=== PATIENT | female | born 1980 | race Caucasian/White ===

== ENCOUNTER 2017-09-14 08:49 | Day surgery (SDC) | payer BC ==
--- NOTE | 2017-09-14 07:14 | PDGENHP ---
History and Physical History and Physical: Assessment and Plan: 1. Endometriosis of pelvic peritoneum Anabel continues to suffer from dyspareunia and dyschezia. She has dysmenorrhea which is mostly a cramping sensation. This may be from both endometriosis and adenomyosis. Unfortunately she has undergone 4 laparoscopies none of which have included excision. If her pain greatly interferes with her life I would recommend vision of all endometriosis. If she prefers trying to get again soon I would pursue this with her regular [employer]TER or obtain a referral to a infertility specialist. She is going to discuss this with her and get back to me if she desires surgical intervention. 2. Dyspareunia, female 3. Metrorrhagia 4. Dyschezia Subjective: Patient ID: Anabel Grady is a 36 y.o. female who presents to [facility] for endometriosis. ELIAS Little is a 36-year-old para 1 woman. Her daughter was born by section. She lives in [place]. She has a long history of pelvic pain with 4 prior laparoscopies for endometriosis in 2010, , , and January 2016. Her most recent [facility] by [facility] Katina Calvin [facility]. Apparently she had some endometriosis which was fulgurated as well as adhesions of her colon ovary and uterus. Her cycles are irregular. She will bleed 3-7 days which is light. However she will have 5 other days of spotting throughout the month which is very inconvenient. She has deep anterior dyschezia as well as deep dyspareunia. After each laparoscopy she feels good for about 12 months then the pain returns. She and her would like more children. She required progesterone supplementation with her daughter. She had a spontaneous miscarriage at 6 weeks after her last laparoscopy. Apparently no heart rate was seen. She was on progesterone supplementation. Overall her pain is still better than it was before her last surgery. PastMedicalHistory Past Medical History: Diagnosis Date Endometriosis determined by laparoscopy IC (interstitial cystitis) PastSurgicalHistory Past Surgical History: Procedure Laterality Date BLADDER SURGERY 2013, 2015 SECTION 2010 CHOLECYSTECTOMY 02/2017 PELVIC LAPAROSCOPY 2010, 2012, 2013, 2016 CURRENT MEDICATIONS: No current outpatient prescriptions on file. No current facility-administered medications for this visit. ALLERGIES: Codeine; Latex; Morphine; Percocet [oxycodone-acetaminophen]; and Sulfa (sulfonamide antibiotics) I have reviewed, verified and agree with the past medical, surgical, , family, social and ROS history as documented by the RN today. Objective: Vital Signs: Visit Vitals BP 108/76 Pulse 79 Temp 37.2 C (98.9 F) (Temporal Artery) Resp 14 Ht 1.664 m (5' 5.5") Wt 87.1 kg (192 lb) SpO2 97% BMI 31.46 kg/m Physical Exam Gen: This is an alert, well developed woman in no distress. Neuro: She moves all extremities. Psych: She is appropriate, oriented, with normal affect. Neck: No thyroid enlargement, adenopathy, or tenderness. Lungs: Clear to ascultation, no wheezes or rales. Heart: Regular rate and rhythm without obvious murmurs. Abdomen: Soft, non-tender, without guarding, rebound, or masses. Extremities: No edema or cyanosis. Pelvic: Normal external genitalia. Non-gaping introitus, vagina without discharge, adequately estrogenized, no significant prolapse. Cervix without lesions or discharge. Uterus normal sized, mobile, non-tender. Adnexa non- tender without enlargement. She is tender surrounding the cervix. She is exquisitely tender along the posterior aspect of the uterus and the upper posterior cul-de-sac. She has slight tenderness of the proximal rectovaginal septum. No obvious nodularity is found. DATA: I have reviewed the pertinent medical records. TIME/COMMUNICATION: I personally spent a total of 50 minutes. Of that 40 minutes was counseling/ coordination of patient's care. See my note above for details. Farhat Wellington MD Board Certified Female Pelvic Medicine and Reconstructive Surgery Director of Minimally Invasive Gynecologic Surgery, [facility] Surgeon in Minimally Invasive Gynecologic Surgery [facility] Surgeon in Robotic Surgery
--- NOTE | 2017-09-14 08:08 | PDANEPAE ---
ANE History of Present Illness here for robot assisted endometriosis excision ANE Past Medical History - Cardiovascular History Hx Hypertension: No Hx Arrhythmias: No Hx Chest Pain: No Hx Coronary Artery / Peripheral Vascular Disease: No Hx CHF / Valvular Disease: No Hx Palpitations: No - Pulmonary History Hx COPD: No Hx Asthma/Reactive Airway Disease: Yes Hx Recent Upper Respiratory Infection: No Hx Oxygen in Use at Home: No Hx Sleep Apnea: No Sleep Apnea Screening Result - Last Documented: Negative Pulmonary History Comment: ASTHMA TRIGGERS COLD AND EXERTION - Neurologic History Hx Cerebrovascular Accident: No Hx Seizures: No Hx Dementia: No - Endocrine History Hx Diabetes: No Endocrine History Comment: HYPOTHYROID HAVEN'T TAKEN MEDICATION IN AWHILE - Renal History Hx Renal Disorders: Yes Renal History Comment: HX INTERSTITIAL CYSTITIS NO FLARE. IN 2 YEARS. IF NEEDS TO BE CATHED NEEDS PEDIATRIC SZ CATHETER - Liver History Hx Hepatic Disorders: No - Neurological & Psychiatric Hx Hx Neurological and Psychiatric Disorders: Yes Neurological / Psychiatric History Comment: DEPRESSION/ANXIETY - Cancer History Hx Cancer: No - Congenital Disorder History Hx Congenital Disorders: No - GI History Hx Gastrointestinal Disorders: Yes Gastrointestinal History Comment: FREQUENT CONSTIPATION - Other Health History Other Health History: RT SHLDR DISCOMFORT - Chronic Pain History Chronic Pain: Yes (ENDOMETROSIS) - Surgical History Prior Surgeries: [place] 02/2017. DX LAP FOR ENDOMETROSIS/ADHESIONS. . BLADDER PROCEDURE FOR INTERSTITIAL CYSTITIS. BLADDER BX ANE Review of Systems Review of systems is: negative Review of Systems: - Exercise capacity Exercise capacity: >=4 METS METS (RN): 4 METS ANE Patient History - Allergies Allergies/Adverse Reactions: codeine Allergy (Verified 08/19/17 14:42) HALLUCINATIONS hydromorphone [From Dilaudid] Allergy (Verified 08/19/17 14:42) RESP DISTRESS latex Allergy (Verified 08/19/17 14:42) ITCHING AND BURNING morphine Allergy (Verified 08/19/17 14:42) HALLUCINATIONS oxycodone Allergy (Verified 08/19/17 14:42) RESP DISTRESS Sulfa (Sulfonamide Antibiotics) Allergy (Verified 08/19/17 14:42) Diarrhea - Home Medications Home medications: home medication list seen and reviewed Home Medications: NK [No Known Home Meds] 08/19/17 [Last Taken Unknown] - Smoking Hx Smoking Status: Never smoked ANE Labs/Vital Signs - Vital Signs Vital Signs: reviewed preoperatively; see RN documention for details Height: 167.64 cm Weight: 83.915 kg ANE Physical Exam - Airway Neck exam: FROM Mallampati Score: Class 1 - Pulmonary Pulmonary: no respiratory distress - Cardiovascular Cardiovascular: regular rate and rhythym - ASA Status ASA Status: I ANE Anesthesia Plan Anesthesia Plan: general endotracheal anesthesia
[2017-09-14] MEDS ORDERED: PHENAZOPYRIDINE HCL 200 MG TAB PO ONE (08:53)
[2017-09-14] MEDS ORDERED: GABAPENTIN 400 MG CAP PO ONE (08:53)
[2017-09-14] MEDS ORDERED: ACETAMINOPHEN 500 MG TAB PO ONE (08:53)
[2017-09-14] MEDS ORDERED: ceFAZolin 2 GM/DEXTROSE 100 ML IV ONE (08:53)
[2017-09-14] MEDS ORDERED: LIDOCAINE 1% 2 ML INJ ID PRN (08:55)
[2017-09-14] MEDS ORDERED: LR 1,000 ML IV ONE (08:55)
[2017-09-14] MEDS ORDERED: BUPIVACAINE/EPI 0.5% 30 ML SDV ONE (08:57)
[2017-09-14] MEDS ORDERED: NALOXONE HCL 0.4 MG/ML INJ IVP PRN (09:09)
[2017-09-14] MEDS ORDERED: ALBUTEROL 3 ML DEYVIAL IH PRN (09:09)
[2017-09-14] MEDS ORDERED: PROMETHAZINE HCL 25 MG/ML INJ IVP PRN (09:09)
[2017-09-14] MEDS ORDERED: DEXAMETHASONE 4 MG/ML VIAL IVP PRN (09:09)
[2017-09-14] MEDS ORDERED: LR 500 ML IV PRN (09:09)
[2017-09-14] MEDS ORDERED: MIDAZOLAM 2 MG/2 ML VIAL IVP ONE (09:09)
[2017-09-14] MEDS ORDERED: ONDANSETRON 4 MG/2 ML VIAL IVP PRN (09:09)
[2017-09-14] MEDS ORDERED: ACETAMINOPHEN 500 MG TAB PO PRN (09:15)
[2017-09-14] MEDS ORDERED: fentaNYL 100 MCG/2 ML INJ ONE ×5 (09:26→14:34)
[2017-09-14] MEDS ORDERED: PROPOFOL/EMULSION 500 MG/50 ML BOTTLE IV ONE (09:31)
[2017-09-14] MEDS ORDERED: ONDANSETRON 4 MG/2 ML VIAL ONE ×3 (09:36→12:48)
[2017-09-14] MEDS ORDERED: PROPOFOL 200 MG/20 ML VIAL ONE (09:55)
[2017-09-14] MEDS ORDERED: GLYCOPYRROLATE 0.2 MG/1 ML VIAL ONE ×3 (10:58)
[2017-09-14] MEDS ORDERED: NEOSTIGMINE METHYLSULFATE 5 MG/5 ML SYR ONE (10:58)
[2017-09-14] MEDS ORDERED: KETOROLAC 30 MG/1 ML SDV ONE (11:03)
--- NOTE | 2017-09-14 11:15 | POSTOPPROG ---
Post Op Note Date of Operation: 09/14/17 Surgeon: Farhat Wellington Casting Machine Set Up Operator: Pepper Carranza Anesthesiologist: Layton Cabrera Anesthesia: GET(General Endotracheal) Pre-op Diagnosis: Endometriosis Post-op Diagnosis: Same Procedure: Robotic excision of endo, bilat ureterolysis Findings: Endo Inf/Abcess present in the surg proc area at time of surgery?: No EBL: Minimal Complications: None Specimen(s): Endo
[2017-09-14] MEDS: fentaNYL 100 MCG/2 ML INJ IVP PRN ×5 (11:32→14:39)
--- NOTE | 2017-09-14 11:55 | GOP ---
[f rep st] OPERATIVE REPORT DATE OF OPERATION: 09/14/2017 SURGEON: Farhat Wellington MD INDUSTRIAL ENGINEERING PROFESSOR: Pepper Zuniga CFA. ANESTHESIA: General. PREOPERATIVE DIAGNOSIS: 1. Endometriosis. 2. Dysmenorrhea. 3. Cyclic pelvic pain. 4. Interstitial cystitis. POSTOPERATIVE DIAGNOSIS: 1. Endometriosis. 2. Dysmenorrhea. 3. Cyclic pelvic pain. 4. Interstitial cystitis. PROCEDURE PERFORMED: 1. Robotic excision of endometriosis throughout posterior cul-de-sac, bilateral ovarian fossas and l eft anterior pelvic sidewall. 2. Bilateral ureterolysis. 3. Bilateral ovariopexy. 4. Cystoscopy with hydrodistention. FINDINGS: SPECIMENS: Pelvic peritoneum with endometriosis. ESTIMATED BLOOD LOSS: Scant. DESCRIPTION OF PROCEDURE: The patient was taken to the operating room where she was identified. Gen eral anesthesia was administered and found to be adequate. She was placed in the lithotomy position and prepared and draped in normal sterile fashion. A Hulka tenaculum was placed in the uterus for ma nipulation. A Hewitt catheter was then placed. A 1 cm infraumbilical incision was made through the prior surgical scar. The Veress needle with CO2 gas flowing was advanced into the peritoneal cavity. The abdomen was then insufflated with carbon di oxide gas. The 12 mm trocar followed by the laparoscope were then inserted. The upper abdomen was u nremarkable. There was no evidence of endometriosis on either diaphragm, stomach, liver, gallbladder or upper abdominal bowel. Two lateral ports were placed, 1 on the right and 1 on the left under dir ect visualization. She then was placed in Trendelenburg position and the Da Neo robot docked on th e left side. The instruments were then brought into the abdominal cavity under direct visualization. The patient had endometriosis and scarring in the posterior cul-de-sac along both uterosacral ligamen ts and both ovarian fossae overlying both ureters. There were several small lesions on the left ante rior pelvic sidewall. There was scarring of the bladder to the lower uterine segment from her prior section. The lesions in the anterior pelvis were excised. Given the cyclic pelvic pain a bilateral ovariopexy was performed by attaching each ovary to the ipsilateral round ligaments near the internal inguinal ring with 3-0 Vicryl Rapide suture. The posterior cul-de-sac peritoneum was then completely excised and the distal rectum up to and including the cervix and laterally to include both uterosacral ligame nts. A bilateral ureterolysis was required given endometriosis overlying both ureters. The peritone um at the pelvic brim was incised. The ureters were gently dissected free and lateralized off the ov erlying peritoneum and endometriosis from the pelvic brim all the way down to the uterine artery. On ce this was accomplished, the entire ovarian fossa peritoneum bilaterally was completely excised. Al l specimens were sent to Pathology for permanent section. The pelvis was then irrigated with sterile saline, and hemostasis was present. The robot was then undocked. The fascia was closed with 0 Vicr yl, skin with 4-0 Monocryl and surgical adhesive. Cystoscopy was then performed. Both ureters had vigorous jets of urine. The patient had 2 Hunner's type lesions on the posterior bladder near the dome. Photographs were taken. Hydrodistention was th en performed in standard fashion. The bladder was then drained. Anesthesia was reversed. The patie nt taken to the PACU awake, in stable condition. COMPLICATIONS: None. DISPOSITION: Patient stable to PACU. /[id number]/MODL
[2017-09-14] MEDS ORDERED: ACETAMINOPHEN 500 MG TAB ONE (12:06)
--- NOTE | 2017-09-14 13:12 | POSTANESTH ---
Post Anesthetic Evaluation Cardiovascular Status: Normal, Stable Respiratory Status: Normal, Stable Level of Consciousness/Mental Status: Can Participate in Eval Pain Control: Adequate, Prn Tx Ordered Nausea/Vomiting Control: Adequate, Prn Tx Ordered Complications Possibly Related to Anesthesia: None Noted
[2017-09-14 16:42] VITALS: BP 112/76
== END 2017-09-14 16:38 | disposition home or self-care (01) ==
LOC: FSGY 08:49
PROVIDERS: ATTEND Obstetrics & Gynecology
PROC: 0UB Female Reproductive System, Excision (ICD-10-PCS; principal; 2017-09-14 09:45)
PROC: 0US28ZZ Reposition Bilateral Ovaries, Via Natural or Artificial Opening Endoscopic (ICD-10-PCS; principal; 2017-09-14 09:45)
PROC: 0UBF8ZX Excision of Cul-de-sac, Via Natural or Artificial Opening Endoscopic, Diagnostic (ICD-10-PCS; principal; 2017-09-14 09:45)
PROC: 8E0Y4CZ Robotic Assisted Procedure of Lower Extremity, Percutaneous Endoscopic Approach (ICD-10-PCS; principal; 2017-09-14 09:45)
DX: N80.3 Endometriosis of pelvic peritoneum (principal); N94.6 Dysmenorrhea, unspecified; N92.1 Excessive and frequent menstruation with irregular cycle; R10.2 Pelvic and perineal pain; N94.12 Deep dyspareunia; N30.10 Interstitial cystitis (chronic) without hematuria; E03.9 Hypothyroidism, unspecified; J45.909 Unspecified asthma, uncomplicated; Z88.2 Allergy status to sulfonamides
CPT/HCPCS: J0690; J1885; J2250; J2405; J2704; J2710; J3010